=== PATIENT | female | born 1975 | race American Indian/Alaskan Native ===

== ENCOUNTER 2018-07-15 12:05 | Emergency (ER) | payer SELFPAY ==
[2018-07-15] MEDS ORDERED: ASPIRIN PO ONE (12:29)
[2018-07-15 13:05] LABS: Basophils # (Auto) 0.1 K/mm3 (0.0-0.1); Basophils % (Auto) 0.6 % (0.0-1.8); Eosinophils # (Auto) 0.2 K/mm3 (0.0-0.4); Eosinophils % (Auto) 2.2 % (0.0-4.3); Hematocrit 42.7 % (30.3-42.9); Hemoglobin 13.3 gm/dl (10.1-14.3); Lymphocytes # (Auto) 3.9 K/mm3 (1.2-5.4); Lymphocytes % (Auto) 40.9 % (13.4-35.0); Mean Corpuscular HGB Conc 31 % (30-34); Mean Corpuscular Volume 71 fl (79-97); Monocytes # (Auto) 0.9 K/mm3 (0.0-0.8); Monocytes % (Auto) 9.7 % (0.0-7.3); Platelet Count 232 K/mm3 (140-440); Red Blood Count 5.98 M/mm3 (3.65-5.03); Red Cell Distribution Width 16.3 % (13.2-15.2)
[2018-07-15 13:09] LABS: Mean Corpuscular Hemoglobin 22 pg (28-32)
[2018-07-15 13:22] LABS: BUN/Creatinine Ratio 14; Blood Urea Nitrogen 13 mg/dL (7-17); Calcium 9.6 mg/dL (8.4-10.2); Hemolysis Index 10
--- NOTE | 2018-07-15 13:28 | Emergency Department Report ---
ED Chest Pain HPI - General Chief Complaint: Chest Pain Stated Complaint: LEFT SIDE CHEST PAIN Time Seen by Provider: 07/15/18 12:50 Source: patient Mode of arrival: Wheelchair Limitations: No Limitations - History of Present Illness Initial Comments: 43-year-old female with multiple chronic medical conditions (see past medical history section) presents to the Hospital complaining of several days' worth of chest pain that worsened today. Pain in the sternal area and radiated to the left side and back with some mild numbness to the arm and fourth and fifth fingers. Pain is intermittent and sharp. Pain worse with movement and palpation. Patient has chronic shortness of breath and chronic leg edema intermittently that is unchanged. Last [id number] travel via car to [place] was in early June. Denies hx of pe, dvt Severity scale (0 -10): 6 - Related Data Previous Rx's Medication Instructions Recorded Last Taken Type traMADol [Ultram 50 MG tab] 50 mg PO Q6HR PRN #20 tablet 07/15/18 Unknown Rx Allergies Allergy/AdvReac Type Severity Reaction Status Date / Time adhesive Allergy Itching Verified 07/15/18 12:29 albuterol Allergy Anaphylaxis Verified 07/15/18 12:28 hydromorphone [From Dilaudid] Allergy Hives Verified 07/15/18 12:27 latex Allergy Hives Verified 07/15/18 12:27 Penicillins Allergy Hives Verified 07/15/18 12:28 acetaminophen [From Percocet] AdvReac Vomiting Verified 07/15/18 12:28 morphine AdvReac Unknown Verified 07/15/18 12:28 oxycodone [From Percocet] AdvReac Vomiting Verified 07/15/18 12:28 Heart Score - HEART Score History: Slightly suspicious EKG: Normal Age: < 45 Risk factors: 1-2 risk factors Troponin: < normal limit HEART Score: 1 ED Review of Systems ROS: Stated complaint: LEFT SIDE CHEST PAIN Other details as noted in HPI Comment: All other systems reviewed and negative ED Past Medical Hx - Past Medical History Previous Medical History?: Yes Hx Hypertension: Yes Hx GERD: Yes Additional medical history: Limited Scleraderma, hypothyroidism, chronic SOB, Stage II kidney disease, hx of inappropriate sinus tachycardia and SVT, SICCA syndrome, central sensitive syndrome with fibromyalgia, thalassemia trait, chronic edema and swelling, chronic migraines, severe GERD, irritable bowel syndrome, vestibular migraines, hypersomnia, major depressive disorder, pelvic floor dysfunction, osteoarthritis, aberrant right subclavian artery, anemia, - Surgical History Past Surgical History?: Yes Additional Surgical History: Extensive surgical hx, "21" surgeries. - Social History Smoking Status: Never Smoker Substance Use Type: None - Medications Home Medications: Home Medications Medication Instructions Recorded Confirmed Last Taken Type traMADol [Ultram 50 MG tab] 50 mg PO Q6HR PRN #20 tablet 07/15/18 Unknown Rx ED Physical Exam - General Limitations: No Limitations - Other Other exam information: General: No limitations, patient is alert in no acute distress Head exam: Atraumatic, normocephalic Eyes exam: Normal appearance ENT: Moist mucous membrane, normal oropharynx Neck exam: Normal inspection, full range of motion, no meningismus nontender Respiratory exam: Clear to auscultation bilateral, no wheezes, rales, crackles. Reproducible sternal and left-sided chest wall tenderness to palpation Cardiovascular: Normal rate and rhythm Abdomen: Soft, nondistended, and nontender, with normal bowel sounds, no rebound, or guarding Extremity: Full range of motion normal inspection no deformity, and the numbness or edema Back: Normal Inspection, full range of motion, no tenderness Neurologic: Alert, oriented x3, cranial nerves intact, no motor or sensory deficit Psychiatric: normal affect, normal mood Skin: Warm, dry, intact ED Course Vital Signs 07/15/18 07/15/18 07/15/18 12:22 13:03 13:05 Temperature 98.7 F Pulse Rate 106 H 107 H Respiratory 20 26 H Rate Blood Pressure 146/90 155/107 O2 Sat by Pulse 99 91 98 Oximetry 07/15/18 07/15/18 13:10 13:16 Temperature Pulse Rate 96 H 98 H Respiratory 14 13 Rate Blood Pressure 144/85 O2 Sat by Pulse 99 99 Oximetry VAISHNAVI score - Vaishnavi Score Age > 65: (0) No Aspirin use within the Past 7 Days: (0) No 3 or more CAD Risk Factors: (0) No 2 or more Angina events in past 24 hrs: (0) No Known CAD with more than 50% Stenosis: (0) No Elevated Cardiac Markers: (0) No ST Deviation Greater than 0.5mm: (0) No VAISHNAVI Score: 0 ED Medical Decision Making - Lab Data Result diagrams: 07/15/18 12:42 07/15/18 12:38 Lab Results 07/15/18 07/15/18 07/15/18 Range/Units 03:10 12:38 12:42 WBC 9.5 (4.5-11.0) K/mm3 RBC 5.98 H (3.65-5.03) M/mm3 Hgb 13.3 (10.1-14.3) gm/dl Hct 42.7 (30.3-42.9) % MCV 71 L (79-97) fl MCH 22 L (28-32) pg MCHC 31 (30-34) % RDW 16.3 H (13.2-15.2) % Plt Count 232 (140-440) K/mm3 Lymph % (Auto) 40.9 H (13.4-35.0) % Brooke % (Auto) 9.7 H (0.0-7.3) % Eos % (Auto) 2.2 (0.0-4.3) % Baso % (Auto) 0.6 (0.0-1.8) % Lymph # 3.9 (1.2-5.4) K/mm3 Brooke # 0.9 H (0.0-0.8) K/mm3 Eos # 0.2 (0.0-0.4) K/mm3 Baso # 0.1 (0.0-0.1) K/mm3 Seg Neutrophils % 46.6 (40.0-70.0) % Seg Neutrophils # 4.4 (1.8-7.7) K/mm3 PT (12.2-14.9) Sec. INR (0.87-1.13) D-Dimer < 135 (0-234) ng/mlDDU Sodium 140 (137-145) mmol/L Potassium 4.0 (3.6-5.0) mmol/L Chloride 103.5 (98-107) mmol/L Carbon Dioxide 20 L (22-30) mmol/L Anion Gap 21 mmol/L BUN 13 (7-17) mg/dL Creatinine 0.9 (0.7-1.2) mg/dL Estimated GFR > 60 ml/min BUN/Creatinine Ratio 14 % Glucose 99 (65-100) mg/dL Calcium 9.6 (8.4-10.2) mg/dL Troponin T < 0.010 (0.00-0.029) ng/mL HCG, Qual (Negative) 07/15/18 07/15/18 Range/Units 13:10 13:10 WBC (4.5-11.0) K/mm3 RBC (3.65-5.03) M/mm3 Hgb (10.1-14.3) gm/dl Hct (30.3-42.9) % MCV (79-97) fl MCH (28-32) pg MCHC (30-34) % RDW (13.2-15.2) % Plt Count (140-440) K/mm3 Lymph % (Auto) (13.4-35.0) % Brooke % (Auto) (0.0-7.3) % Eos % (Auto) (0.0-4.3) % Baso % (Auto) (0.0-1.8) % Lymph # (1.2-5.4) K/mm3 Brooke # (0.0-0.8) K/mm3 Eos # (0.0-0.4) K/mm3 Baso # (0.0-0.1) K/mm3 Seg Neutrophils % (40.0-70.0) % Seg Neutrophils # (1.8-7.7) K/mm3 PT 12.1 L (12.2-14.9) Sec. INR 0.85 L (0.87-1.13) D-Dimer (0-234) ng/mlDDU Sodium (137-145) mmol/L Potassium (3.6-5.0) mmol/L Chloride (98-107) mmol/L Carbon Dioxide (22-30) mmol/L Anion Gap mmol/L BUN (7-17) mg/dL Creatinine (0.7-1.2) mg/dL Estimated GFR ml/min BUN/Creatinine Ratio % Glucose (65-100) mg/dL Calcium (8.4-10.2) mg/dL Troponin T (0.00-0.029) ng/mL HCG, Qual Negative (Negative) - EKG Data -: EKG Interpreted by Ut EKG shows normal: sinus rhythm, axis (qrs 10), QRS complexes (qrsd ) Rate: tachycardia (105) - EKG Data When compared to previous EKG there are: previous EKG unavailable - Radiology Data Radiology results: report reviewed ROUTINE CHEST, TWO VIEWS: HISTORY: Chest pain, shortness of breath. The trachea, heart, mediastinal contour, lung shook and bony thorax are unremarkable. IMPRESSION: Unremarkable chest x-ray. - Medical Decision Making Patient has reproducible left-sided chest wall pain. No reported injury. X-ray , EKG, troponin, and d-dimer are unremarkable. She symptomatically with tramadol. Left was Insisted a history of severe esophagitis as well as peptic ulcer disease. Does not have a local primary care doctor and she was encouraged to follow up with [facility] giving her P medical history me for multiple specialists. - Differential Diagnosis costochondritis, ND, PE, pleurisy, pneumothorax, chest wall pain, Critical Care Time: No Critical care attestation.: If time is entered above; I have spent that time in minutes in the direct care of this critically ill patient, excluding procedure time. ED Disposition Clinical Impression: Costochondritis, acute Disposition: DC-01 TO HOME OR SELFCARE Is pt being admited?: No Does the pt Need Aspirin: No Condition: Stable Instructions: Costochondritis (ED) Additional Instructions: Take the medication as prescribed. Follow with doctor provided or one of the [facility] physicians and specialists.. Return if symptoms worsen as indicated by your discharge instructions Prescriptions: traMADol [Ultram 50 MG tab] 50 mg PO Q6HR PRN #20 tablet PRN Reason: Pain Referrals: PRIMARY CARE, [Primary Care Provider] - 3-5 Days KAZ MIMS MD [Staff Physician] - 3-5 Days Time of Disposition: 16:23
--- NOTE | 2018-07-15 13:34 | XRay Report ---
ROUTINE CHEST, TWO VIEWS: HISTORY: Chest pain, shortness of breath. The trachea, heart, mediastinal contour, lung shook and bony thorax are unremarkable. IMPRESSION: Unremarkable chest x-ray.
[2018-07-15 13:44] LABS: INR 0.85 (0.87-1.13)
[2018-07-15] MEDS ORDERED: ULTRAM PO ONE (15:14)
[2018-07-15 16:41] VITALS: BP 135/80
== END 2018-07-15 16:36 | disposition home or self-care (01) ==
LOC: ED 12:05
DX: M94.0 Chondrocostal junction syndrome [Tietze] (principal); I10 Essential (primary) hypertension; K21.9 Gastro-esophageal reflux disease without esophagitis; Z98.890 Other specified postprocedural states; Z91.048 Other nonmedicinal substance allergy status; Z88.9 Allergy status to unspecified drugs, medicaments and biological substances; Z88.5 Allergy status to narcotic agent; Z91.040 Latex allergy status; Z88.0 Allergy status to penicillin; Z88.6 Allergy status to analgesic agent
CPT/HCPCS: 36415; 71046; 80048; 84484; 84703; 85025; 85379; 85610; 93005; 93010; 99284